=== PATIENT | female | born 1980 ===

== ENCOUNTER 2020-07-06 17:22 | Emergency (ER) | payer OTHER, SELFPAY ==
[2020-07-06 17:28] VITALS: BP 108/53; PULSE 87; RESP 16; TEMP 36.4; O2SAT 100
[2020-07-06 17:51] LABS: Basophils Absolute Auto 0.1 K/mm3 (0.0-0.1); Basophils Percent Auto 1.1 % (0.2-1.2); Eosinophils Absolute Auto 0.7 K/mm3 (0-0.3); Eosinophils Percent Auto 8.6 % (0-4.4); Hematocrit 32.2 % (37.0-47.0); Hemoglobin 10.1 g/dL (12.0-15.0); Immature Granulocyte Absolute 0.02 K/mm3 (0.00-0.031); Immature Granulocyte Percent A 0.2 % (0-0.5); Lymphocytes Absolute Auto 1.92 K/mm3 (0.9-3.2); Lymphocytes Percent Auto 23.6 % (18.3-44.2); Mean Corpuscular HGB Conc 31.4 g/dl (32-36); Mean Corpuscular Hemoglobin 26.6 pg (26-34); Mean Corpuscular Volume 84.7 fl (80-100); Mean Platelet Volume 10.5 fl (7.4-10.4); Monocytes Absolute Auto 0.6 K/mm3 (0.1-0.6); Monocytes Percent Auto 6.8 % (2.6-8.5); Neutrophils Absolute Auto 4.9 K/mm3 (1.3-6.7); Neutrophils Percent Auto 59.7 % (45.5-73.1); Platelet Count Result 285 k/mm3 (150-375); Red Cell Distribution Width 18.6 % (11.5-14.5); White Blood Count 8.1 K/mm3 (4.5-10.0)
[2020-07-06 18:06] LABS: Alanine Aminotransferase 24 U/L (4-35); Albumin Level 3.7 g/dL (3.5-5.1); Alkaline Phosphatase 47 U/L (38-126); Anion Gap 9 mmol/L (8-16); Aspartate Amino Transferase 27 U/L (14-36); Bilirubin,Total 0.2 mg/dL (0.2-1.3); Blood Urea Nitrogen 15 mg/dL (7-17); Calcium 8.7 mg/dL (8.4-10.2); Carbon Dioxide 22 mmol/L (22-30); Chloride 106 mmol/L (98-107); Estimated CRCL calculation 72 ml/min; Estimated Glomerular Filt Rate > 60; Glucose 111 mg/dL (65-105); Potassium 3.9 mmol/L (3.4-5.0); Sodium 137 mmol/L (137-145)
[2020-07-06 20:34] VITALS: BP 100/89; PULSE 74; RESP 18; TEMP 36.9; O2SAT 100
[2020-07-06 20:35] VITALS: RESP 18; O2SAT 100
--- NOTE | 2020-07-06 20:40 | ED.RECABL ---
HPI - Recheck/Abnormal Lab/Rx General Chief Complaint: Recheck/Abnormal Lab/Rx Stated Complaint: suspects iron low Time Seen by Provider: 07/06/20 20:31 History of Present Illness HPI narrative: 40 yo female w/ h/o anemia presents to the ED for fatigue. She reports that for the past few days she has been very tired. She has MENDIOLA. She also says that her tongue feels tender and swollen. She says that these are all the symptoms she usually has when she is very anemic. On review of the chart she has previously had severe iron deficiancy anemia. She denies dark or bloody stools. No fever, nausea, vomiting, diarrhea. Related Data Home Medications Medication Instructions Recorded Confirmed No Home Medications 07/06/20 07/06/20 Allergies Allergy/AdvReac Type Severity Reaction Status Date / Time Sulfa (Sulfonamide Allergy Unknown WAS Verified 07/06/20 17:32 Antibiotics) ADOPTED-DOES NOT KNOW REACTION Review of Systems Review of Systems: All systems reviewed & are unremarkable except as noted in HPI and below Constitutional: Constitutional: Denies chills, Reports fatigue and Denies fever(s) Eyes: Eyes: Denies change in vision ENT: Denies epistaxis and Denies sore throat Cardiovascular: Cardiovascular: Denies chest pain Respiratory: Respiratory: Reports dyspnea Gastrointestinal: Gastrointestinal: Denies abdominal pain, Denies diarrhea, Denies nausea and Denies vomiting Genitourinary: Genitourinary: Denies hematuria and Denies dysuria Neurologic: Reports dizziness, Denies syncope, Reports headache(s) and Reports weakness Endocrine: Endocrine: Reports fatigue Hematologic/Lymphatic: Hematologic/Lymphatic: Denies easy bleeding and Denies easy bruising PMFSH Past Medical History Medical History (Updated 07/07/20 @ 03:49 by Del Portillo MD) Anemia Social History Social History (Updated 07/07/20 @ 03:50 by Del Portillo MD) Smoking status: Current every day smoker Gender identity (if verbalized by the patient): Female Exam Const: General: no acute distress and alert Nutritional Appearance: well nourished Orientation/consciousness: patient oriented x3 HENMT: Head: normal to inspection Resp: Effort & Inspection: normal respiratory effort Auscultation: clear to auscultation bilaterally Cardio: Rate: regular rate Rhythm: regular rhythm GI: GI Palp: Yes Soft to palpation and No Tenderness to palpation present (GI) Skin: General skin exam: normal color, no jaundice and no pallor Neuro: General: patient oriented x3, moves all extremities, no focal motor deficits and CN's II-XI intact bilaterally Speech: normal speech Gait exam (Neuro): Normal gait present Extrem: General: normal to inspection and no edema Course Vital Signs Vital signs: Vital Signs Temperature 36.4 C 07/06/20 17:28 Pulse Rate 87 07/06/20 17:28 Respiratory Rate 16 07/06/20 17:28 Blood Pressure 108/53 L 07/06/20 17:28 Pulse Oximetry 100 07/06/20 17:28 Temperature 36.9 C 07/06/20 20:34 Pulse Rate 74 07/06/20 20:34 Respiratory Rate 18 07/06/20 20:35 Blood Pressure 100/89 07/06/20 20:34 Pulse Oximetry 100 07/06/20 20:35 MDM - Recheck/Abnormal Lab/Rx MDM Narrative Medical decision making narrative: H/H stable. She appears dehydrated on exam. I offered IV fluids and she declined. Medical Records Attestation: I reviewed the patient's medical records. Lab Data Attestation: I reviewed the patient's lab results. Result diagrams: 07/06/20 17:40 07/06/20 17:40 Labs: Lab Results 07/06/20 07/06/20 Range/Units 17:40 17:40 WBC 8.1 (4.5-10.0) K/mm3 RBC 3.80 L (4.2-5.4) M/mm3 Hgb 10.1 L (12.0-15.0) g/dL Hct 32.2 L (37.0-47.0) % MCV 84.7 (80-100) fl MCH 26.6 (26-34) pg MCHC 31.4 L (32-36) g/dl RDW 18.6 H (11.5-14.5) % Plt Count 285 (150-375) k/mm3 MPV 10.5 H (7.4-10.4) fl Immature Gran % (Auto
--- NOTE | 2020-07-06 20:44 | PC.NURSE ---
Registration into the patient room for registration, pt no longer in the room.
--- NOTE | 2020-07-06 20:45 | PC.NURSE ---
Patient left ED at 2040.
== END 2020-07-06 20:41 | disposition home or self-care (01) ==
LOC: ANHED 20:46
PROVIDERS: Emergency Medicine; Emergency Provider Emergency Medicine
DX: R53.83 Other fatigue (principal); F17.200 Nicotine dependence, unspecified, uncomplicated; D64.9 Anemia, unspecified
CPT/HCPCS: 36415; 80053; 85025; 99283

== ENCOUNTER 2022-06-01 15:00 | Emergency (ER) | payer OTHER, SELFPAY ==
[2022-06-01 15:03] VITALS: BP 114/48; PULSE 95; RESP 18; TEMP 36.7; O2SAT 100
--- NOTE | 2022-06-01 15:55 | ED.URI ---
HPI - URI/Sore Throat General Chief Complaint: Upper Respiratory Infection Stated Complaint: ST Time Seen by Provider: 06/01/22 15:43 Source: patient and RN notes reviewed Mode of arrival: ambulatory Limitations: no limitations History of Present Illness HPI Narrative: This is a 42 year old female who presents for evaluation of URI symptoms. She reports 2 weeks of sore throat, throat soreness, cough and congestion. She thinks she may have had a fever 4 days ago but she did not have a thermometer. She denies shortness of breath, headache, nausea, vomiting, chest pain or diarrhea. Related Data Allergies Allergy/AdvReac Type Severity Reaction Status Date / Time Sulfa (Sulfonamide Allergy Unknown WAS Verified 07/06/20 17:32 Antibiotics) ADOPTED-DOES NOT KNOW REACTION Review of Systems Review of Systems: All systems reviewed & are unremarkable except as noted in HPI and below Constitutional: Constitutional: Reports chills and Denies fever(s) ENT: Reports nasal congestion and Reports sore throat Cardiovascular: Cardiovascular: Denies chest pain Respiratory: Respiratory: Reports chest congestion, Reports cough and Denies dyspnea Gastrointestinal: Gastrointestinal: Denies abdominal pain, Denies diarrhea, Denies nausea and Denies vomiting Neurologic: Denies headache(s) PMFSH Past Medical History Medical History (Updated 06/01/22 @ 17:24 by Bailee Vera MD) Anemia Social History Social History (Updated 07/07/20 @ 03:50 by Del Portillo MD) Smoking status: Current every day smoker Gender identity (if verbalized by the patient): Female Exam Const: General: no acute distress and alert Nutritional Appearance: well nourished Orientation/consciousness: patient oriented x3 HENMT: General nose exam: Normal external nose present Face and sinus: normal facial exam Mouth: Yes lip normal and Yes moist mucous membranes Throat: uvula midline, abnormal tonsil bilateral erythema and exudates and no uvular edema Eyes: EOM: EOMs intact bilaterally Neck: Neck: lymphadenopathy (anterior cervical) Chest: Chest palpation & inspection: normal inspection of the chest Resp: Effort & Inspection: normal respiratory effort Auscultation: clear to auscultation bilaterally Cardio: Rate: regular rate Rhythm: regular rhythm Heart sounds: no murmurs Skin: General skin exam: normal color Rashes: no rashes Wounds: no wounds Neuro: General: patient oriented x3, moves all extremities and CN's II-XI intact bilaterally Extrem: General: normal to inspection Psych: Mental Status: mental status grossly normal Affect: normal affect Course Reevaluation(s) Reevaluation #1: I discussed with patient that strep and covid are negative. She does have tonsillar erythema, enlargement and exudate so will place on antibiotics for pharyngitis. Date: 06/01/22 Time: 17:23 Vital Signs Vital signs: Vital Signs Temperature 98.1 F 06/01/22 15:03 Pulse Rate 95 06/01/22 15:03 Respiratory Rate 18 06/01/22 15:03 Blood Pressure 114/48 L 06/01/22 15:03 Pulse Oximetry 100 06/01/22 15:03 Oxygen Delivery Room Air 06/01/22 15:03 Temperature 98.1 F 06/01/22 15:03 Pulse Rate 75 06/01/22 17:37 Respiratory Rate 16 06/01/22 17:37 Blood Pressure 119/74 06/01/22 17:37 Pulse Oximetry 100 06/01/22 17:37 Oxygen Delivery Room Air 06/01/22 16:46 MDM - URI/Sore Throat Lab Data Attestation: I reviewed the patient's lab results. Labs: Lab Results 06/01/22 Range/Units 16:09 SARS-CoV-2 RNA (RT-PCR) Negative Strep Screen Presumptive Negative *(Reference Range: Negative)* Discharge Plan Discharge Clinical Impression: Pharyngitis, Upper respiratory infection Patient Disposition: Home, Self-Care Condition: Stable Instructions: Antibiotic Form, Pharyngitis (ED) Prescriptions: New amoxicil
[2022-06-01 16:53] LABS: SARS-CoV-2 RNA PCR Negative
[2022-06-01] MEDS: AMOXICILLIN/CLAVULANATE K 875-125 MG TAB 1 TABLET PO (17:35)
[2022-06-01 17:37] VITALS: BP 119/74; PULSE 75; RESP 16; O2SAT 100
== END 2022-06-01 17:40 | disposition home or self-care (01) ==
PROVIDERS: Emergency Provider General Practice
DX: J06.9 Acute upper respiratory infection, unspecified (principal); J02.9 Acute pharyngitis, unspecified; F17.200 Nicotine dependence, unspecified, uncomplicated; Z20.822 Contact with and (suspected) exposure to COVID-19
CPT/HCPCS: 87081; 87880; 96372; 99283; A9270; C9803; J1100; U0003; U0005